=== PATIENT | male | born 1985 | race Caucasian/White ===

== ENCOUNTER 2023-05-13 18:36 | Observation (INO) | payer OTHER ==
[~2023-05-13] VITALS: Ht 172.7 cm; Wt 109.9 kg
[2023-05-13 17:00] VITALS: BP_SYST 131
[~2023-05-13 18:36] MED LIST: MOTRIN 600600 MG/TAB PO; MOTRIN 800800 MG/TAB PO; NO HOME MEDICATIONS; PERCOCET 325 MG1 TA2 PO
[2023-05-13 18:50] VITALS: BP 131/60; PULSE 81; TEMP 98.2
--- NOTE | 2023-05-13 19:42 | NUR ---
Patient assessed at this time. Alert and oriented, and able to make needs known. Reports level 4 pain to abdomen, described as stabbing. Has 3 lap sites from lap appy yesterday. Left lap site does have bruising to area. Abdomen is firm to left side. Has not had a BM since 05/11, but reports passing gas. Dr. Coronado in room to assess patient, awaiting orders at this time. Ok to eat tonight, NPO after midnight. Given sandwich box, water, and juice as requested. In bed with call light within reach. Voices no further questions, needs, or concerns at this time.
[2023-05-13 20:05] VITALS: BP 152/78; PULSE 87; TEMP 98
[2023-05-13 22:00] VITALS: BP_SYST 152
[2023-05-13 23:50] VITALS: BP 143/65; PULSE 80; TEMP 97.7
[2023-05-14 00:21] VITALS: BP_SYST 143
[2023-05-14 03:18] VITALS: BP 122/70; PULSE 69; TEMP 97.7
[2023-05-14 04:23] VITALS: BP_SYST 122
[2023-05-14 05:59] LABS: BASO % 0.3 % (0.0-2.0); EOS # 0.1 K/mm3 (0.0-0.7); EOS % 1.1 % (0.0-4.0); GRAN # 4.6 K/mm3 (1.4-6.5); GRAN % 59.9 % (42.2-75.2); HEMATOCRIT 40.2 % (42.0-52.0); HEMOGLOBIN 13.2 g/dl (13.5-18.0); LYMPH # 1.5 K/mm3 (1.2-3.4); LYMPH % 19.4 % (20.0-51.0); MEAN CELL VOLUME 91 fl (80.0-100.0); MEAN CORPUSCULAR HEMOGLOBIN 30 pg (27-31); MEAN CORPUSCULAR HGB CONC 33 g/dl (33.0-37.0); MEAN PLATELET VOLUME 9.8 fl (7.4-10.4); MONO # 1.4 K/mm3 (0.1-0.6); MONO % 18.5 % (1.7-9.3); PLATELET COUNT 228 K/mm3 (130-400); RED BLOOD COUNT 4.42 M/mm3 (4.20-5.60); REDCELL DISTRIBUTION WIDTH-CV 14.5 % (11.5-14.5)
--- NOTE | 2023-05-14 06:04 | NUR ---
Patient received scheduled Toradol this shift per orders. Seemed to be resting when check on during the night, and did not request any PRN pain medications this shift. IV fluids continue per orders. Voices no questions, needs, or concerns at this time. In bed with call light within reach.
[2023-05-14 06:19] LABS: ALBUMIN 3.1 gm/dL (3.5-5.0); BILIRUBIN,TOTAL 0.3 mg/dL (0.2-1.2); CALCIUM 8.5 mg/dL (8.4-10.2); CREATININE, serum 1.11 mg/dL (0.72-1.25); POTASSIUM 4.4 mmol/L (3.5-4.5); TOTAL PROTEIN 5.7 gm/dL (6.2-8.1)
--- NOTE | 2023-05-14 08:02 | NUR ---
LEFT VOICE MAIL FOR DR DIAMOND THAT [facility]
[2023-05-14 08:18] VITALS: BP 124/65; PULSE 80; TEMP 98.1
[2023-05-14 09:00] VITALS: BP_SYST 124
--- NOTE | 2023-05-14 11:37 | NUR ---
PT LEFT WITHOUT DISCHARGE ORDERS. ATE LUNCH AND THEN WALKED OUT WITH FAMILY. DR. DIAMOND MADE AWARE.
--- NOTE | 2023-05-14 11:49 | NUR ---
ATTEMPTED TO CALL PT TO GIVE INSTRUCITONS. PT DID NOT ANSWER.
--- NOTE | 2023-05-14 11:59 | NUR ---
Initial visit: [employer] stopped by room on rounds. Pt was resting and content. Pt has no needs right now. [employer] will follow up as needed.
[2023-05-14] MEDS ORDERED: FLAGYL500 MG PO (12:54)
[2023-05-14] MEDS ORDERED: CIPRO 500MG TA500 MG PO (12:55)
== END 2023-05-14 11:50 | disposition home or self-care (01) ==
LOC: SURG 18:36
PROVIDERS: ADMIT Surgery
DX: R10.32 Left lower quadrant pain (principal); D72.829 Elevated white blood cell count, unspecified; Z98.890 Other specified postprocedural states
CPT/HCPCS: G0378; G0379; J1885; J3480